=== PATIENT | male | born 1955 | race Caucasian/White ===

== ENCOUNTER 2017-05-17 18:11 | Emergency (ER) | payer OTHER ==
[2017-05-17 18:25] VITALS: BP 123/77; PULSE 94; RESP 16; TEMP 97.7; O2SAT 96
== END 2017-05-17 20:41 | disposition left against medical advice (07) ==
DX: Z53.21 Procedure and treatment not carried out due to patient leaving prior to being seen by health care provider (principal)

== ENCOUNTER 2017-05-18 09:17 | Emergency (ER) | payer OTHER ==
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
[2017-05-18 10:25] VITALS: BP 141/87; PULSE 64; RESP 16; TEMP 98.1; O2SAT 95
== END 2017-05-18 10:26 | disposition home or self-care (01) ==
DX: G44.89 Other headache syndrome (principal); F07.81 Postconcussional syndrome; I10 Essential (primary) hypertension; F17.200 Nicotine dependence, unspecified, uncomplicated